=== PATIENT | male | born 1960 | race Caucasian/White ===

== ENCOUNTER 2020-04-01 12:08 | Outpatient (CLI) | payer OTHER | END 2020-04-01 12:11 | disposition home or self-care (01) | LOC: SONOGRAMA 12:08 | PROVIDERS: ATTEND Pathology Anatomic Pathology & Clinical Pathology | DX: E04.2 Nontoxic multinodular goiter (principal) ==

== ENCOUNTER 2020-09-30 09:37 | Outpatient (CLI) | payer OTHER | END 2020-09-30 10:00 | disposition home or self-care (01) | LOC: SONOGRAMA 09:37 | PROVIDERS: ATTEND Pathology Anatomic Pathology & Clinical Pathology | DX: D34 Benign neoplasm of thyroid gland (principal); E06.3 Autoimmune thyroiditis; E04.8 Other specified nontoxic goiter; E06.5 Other chronic thyroiditis ==